=== PATIENT | male | born 1935 | race Caucasian/White ===

== ENCOUNTER 2024-03-19 12:19 | Emergency (ER) | payer MEDICARE, SELFPAY ==
[2024-03-19 12:20] VITALS: BP 133/78
[2024-03-19] MEDS: ULTRAM 50 MG PO (15:18)
[2024-03-19 15:34] LABS: % Basophils 0.5 % (0-2); % Eosinophils 2.7 % (0-6); % Immature Granulocytes 0.2 % (0-0.5); % Lymphocytes 17.5 % (20.5-51.1); % Monocytes 10.4 % (1.7-9.3); % Neutrophils 68.7 % (42.2-75.2); Absolute Eosinophils 0.2 10^3/uL (0-0.7); Absolute Lymphocytes 1.4 10^3/uL (1.2-3.4); Absolute Monocytes 0.8 10^3/uL (0.1-0.6); Absolute Neutrophils 5.6 10^3/uL (1.4-6.5); Hematocrit 29.2 % (39.0-52.0); Hemoglobin 9.8 g/dL (13.0-18.0); Mean Corp Hgb Conc. 33.6 g/dL (33.0-37.0); Mean Corpuscular Hgb 32.8 pg (27.0-31.0); Mean Corpuscular Volume 97.7 fL (80.0-94.0); Mean Platelet Volume 9.6 fL (7.4-10.4); Nucleated Red Blood Cells % 0 % (-); Platelet Count 147 10^3/uL (130-400); Red Blood Cell Count 2.99 10^6/uL (4.70-6.10); Red Cell Dist. Width 13.8 % (11.5-14.5); White Blood Cell Count 8.1 10^3/uL (4.8-10.8)
--- NOTE | 2024-03-19 17:39 | ED.GENMED ---
History of Present Illness
General
Chief Complaint: Musculo-Skeletal Complaint
Source: patient and records
Exam Limitations: none
Time Seen by Provider: 03/19/24 14:41
Nursing documentation reviewed up to this point in time: agreed with
History of Present Illness
History of Present Illness:
Patient is an 88-year-old male who presents to the emergency department complaining of left hip/groin pain since yesterday. Patient did not fall. Patient complains of pain at rest. Patient denies fever or chills, nausea, vomiting or diarrhea.
Patient denies abdominal pain or back pain. Patient denies any previous history of similar episodes. Patient is on tramadol for pain.
Past History
Past History
ED Past Medical History: CAD, HTN and Hypercholesterolemia
ED Past Surgical History: Cardiac (stenting [address] [facility]) and Orthopedic (right shoulder)
Social History
Tobacco: Former smoker
Alcohol: None
Personal:
Living: with family
Employment: Retired
Family History
Family History: Other
Review of Systems
Review of Systems
All Other Systems: Not applicable
Phy Exam
Physical Exam
Physical Exam:
Physical Exam
General: No apparent distress, alert and appropriate, well nourished, well hydrated
HENT: Normocephalic, supple with no lymphadenopathy, no thyromegaly
Eyes: Clear sclera, conjuctiva without injection
Heart: Regular rhythm and rate. No S3, S4. No murmur.
Lungs: No respiratory distress, no stridor, lung sounds clear and equal bilaterally, chest wall symmetrical and nontender
Abdomen: Soft, nontender, BS good
Neuro: Alert and usual mental status, CN II - XII intact, no motor focality, no cerebellar dysfunction
Skin: no rash
Psychiatric: well kept. interactive and cooperative
Extremities: No edema, cyanosis. Patient is tender around the left iliac crest and anterior superior iliac spine. Patient has a full range of motion of the hip with no tenderness or deformity.
Course
Orders/Labs/Results
Orders:
Orders
03/19/24 15:04
Tramadol HCl [Ultram] 50 mg PO NOW STA
Hip, Left 2-3 Views [CR Hip - LT w/wo Pel 2-3 Vw*] Urgent
Comment:
Reason For Exam: pain and tender
Include a pelvis x-ray?: Yes
03/19/24 15:25
Complete Blood Count/With Diff Urgent
Abnormal Lab Results
03/19/24
15:25
RBC 2.99 L 10^6/uL
(4.70-6.10)
Hgb 9.8 L g/dL
(13.0-18.0)
Hct 29.2 L %
(39.0-52.0)
MCV 97.7 H fL
(80.0-94.0)
MCH 32.8 H pg
(27.0-31.0)
Absolute Monos (auto) 0.8 H 10^3/uL
(0.1-0.6)
Lymphocytes % 17.5 L %
(20.5-51.1)
Monocytes % 10.4 H %
(1.7-9.3)
03/19/24 15:25
Vital Signs
Initial and Last Documented VS:
Initial Vital Signs
Temp Pulse Resp BP Pulse Ox
98.2 F 77 18 133/78 98
03/19/24 12:20 03/19/24 12:20 03/19/24 12:20 03/19/24 12:20 03/19/24 12:20
Last Documented Vital Signs
Temp Pulse Resp BP Pulse Ox
98.2 F 77 18 133/78 98
03/19/24 12:20 03/19/24 12:20 03/19/24 12:20 03/19/24 12:20 03/19/24 12:20
*Radiology
Radiology exam reviewed: radiology read reviewed (neg)
*Pulse Oximetry
Patient hypoxic: no
*EKG
Interpreted by ED Provider?: NA
*Roll Plugger Interpretation
Rate: Roll Plugger- N/A
*Critical Care Note
Total Time (30-74mins, 75-104mins- exclusive of procedures): Not Applicable
Update Note
Update Note:
Patient was able to weight-bear and will walk. Patient is not complaining of spasms. I will continue the patient on tramadol And try mild nonsteroidal anti-inflammatory.
ED Attending Note
-
Portions of this chart may have been created with voice recognition software.� Occasional wrong word or��sound alike� substitutions may have occurred due to the inherent limitations of voice recognition software.
Discharge Plan
Departure
Patient Disposition: Assisted Living
Date of Disposition: 03/19/24
Time of Disposition: 17:48
Patient with high blood pressure during this ER visit?: No
Condition: Fair
Covid-19: Not Applicable
Discharge Problem:
Arthralgia of left hip
Instructions: Hip pain in adults
Prescriptions:
New
celecoxib [Celebrex] 100 mg capsule
100 mg PO BID Qty: 20 0RF
No Action
aspirin 81 MG tablet,chewable
81 mg PO DAILY
rosuvastatin [Crestor] 40 MG tablet
40 mg PO HS Qty: 0
cholecalciferol (vitamin D3) 1,000 UNITS tablet
2,000 units PO DAILY Qty: 0
nitroglycerin 0.4 MG tablet, sublingual
0.4 mg sublingual [id number] PRN (Reason: chest discomfort) Qty: 25 0RF
chlorhexidine gluconate 15 ML mouthwash
15 ml PO BID 0RF
donepezil 5 mg Tablet
5 mg PO DAILY
midodrine 5 mg Tablet
5 mg PO DAILY
Rx Instructions:
hold for systolic BP>140
esomeprazole magnesium 40 mg Capsule,Delayed Release(Dr/Ec)
40 mg PO DAILY
calcium carbonate 500 mg calcium (1,250 mg) Tablet,Chewable
500 mg PO TID PRN (Reason: after meals for gastric distress)
polyethylene glycol 3350 [Miralax] 17 gram/dose Powder
17 g PO DAILY
ketoconazole 2 % Cream
1 applic TOPICAL BID
fluticasone propionate 50 mcg/actuation [place],Suspension
100 mcg INTRANASAL HS
Rx Instructions:
2 sprays each nostril
loratadine [Claritin] 10 mg Tablet
10 mg PO HS
polyethylene glycol 3350 [HealthyLax] 17 gram Powder In Packet
17 g PO DAILY Qty: 0 0RF
guaifenesin 600 mg Tablet Extended Release 12hr
1,200 mg PO Q12 Qty: 0 0RF
acetaminophen 325 MG tablet
650 mg PO Q4 PRN (Reason: Pain) Qty: 0 0RF
tramadol 50 MG tablet
50 mg PO Q8HPRN PRN (Reason: moderate to severe pain) Qty: 9 0RF
tramadol 50 mg Tablet
50 mg PO DAILY Qty: 3 0RF
benzonatate 100 mg Capsule
100 mg PO TIDPRN PRN (Reason: cough) Qty: 0 0RF
Referrals:
Harshal Noyola MD [Family Provider] - Follow up in 5-7 days
Activity Restrictions/Additional Instructions:
Continue present medications and therapy. If worsening pain a physical therapy consult may be in order. That will be determined by patient's primary care physician.
Interventions
Interventions:
*Risk Screen - Suicide Last Done: 03/19/24 12:20
*General Assessment Last Done: 03/19/24 12:20
*Neglect/Abuse Screening Last Done: 03/19/24 12:20
ED- Fall Risk Assessment Last Done: 03/19/24 16:03
*ED COVID-19 Vaccine History Last Done: 03/19/24 16:03
ED-Musculoskeletal Assessment Last Done: 03/19/24 16:02
Discharge Date and Time
Print Language: INDONESIAN
[2024-03-19 18:27] VITALS: BP 128/69
== END 2024-03-19 18:43 ==
LOC: EMR 12:19
PROVIDERS: EMERGENCY PHYSICIAN Emergency Medicine; FAMILY PHYSICIAN Internal Medicine Geriatric Medicine
DX: M25.552 Pain in left hip (principal); E78.00 Pure hypercholesterolemia, unspecified; I25.10 Atherosclerotic heart disease of native coronary artery without angina pectoris; I10 Essential (primary) hypertension; Z87.891 Personal history of nicotine dependence; Z95.5 Presence of coronary angioplasty implant and graft
CPT/HCPCS: 99284; 73502; 85025

== ENCOUNTER → 2024-04-03 16:45 | Outpatient (REF) | payer MEDICARE, SELFPAY ==
[2024-04-03 18:19] LABS: Urine Albumin Negative (Neg - Trace); Urine Bilirubin Negative (Negative); Urine Character Clear (Clear); Urine Color Yellow; Urine Glucose Negative (Negative); Urine Ketone Negative (Negative); Urine Leukocyte Negative (Negative); Urine Nitrite Negative (Negative); Urine Occult Blood Negative (Negative); Urine Urobilinogen Negative (Neg - 1+)
== END ==
LOC: OLABLV 16:45
PROVIDERS: ATTENDING PHYSICIAN Nurse Practitioner Gerontology
DX: N39.0 Urinary tract infection, site not specified (principal)
CPT/HCPCS: 81003